=== PATIENT | female | born 1940 | race Caucasian/White ===

== ENCOUNTER 2025-03-04 07:55 | Outpatient (CLI) | payer MEDICARE, SELFPAY | END 2025-03-04 07:56 | disposition home or self-care (01) | LOC: AMB 03-05 10:03 | PROVIDERS: Visit Provider Emergency Medicine | DX: S79.912A Unspecified injury of left hip, initial encounter (principal); W06.XXXA Fall from bed, initial encounter; Y92.003 Bedroom of unspecified non-institutional (private) residence as the place of occurrence of the external cause | CPT/HCPCS: A0425; A0433 ==

== ENCOUNTER 2025-03-04 08:33 | Observation (INO) | payer MEDICARE, SELFPAY ==
[2025-03-04] VITALS (12 sets, daily range): BP systolic 108–153; BP diastolic 65–79; PULSE 71–93; RESP 16–18; TEMP 36.2–37; O2SAT 92–96; BMI 19.5; BMI 15.5
--- NOTE | 2025-03-04 08:47 | CRLHL7_ITS ---
For Patients: As a result of the Cures Act, medical imaging exams and procedure reports are released immediately into your electronic medical record. You may view this report before your referring provider. If you have questions, please contact your health care provider. INDICATION: Left hip pain post fall TECHNIQUE: AP view of the pelvis and lateral projection of the left hip COMPARISON: None FINDINGS: Acute nondisplaced fractures of left pubic ramus and medial inferior ischiopubic ring. No other obvious fracture or subluxation/diastases. Hips negative. IMPRESSION: Acute nondisplaced fractures of left pubic ramus and medial inferior ischiopubic ring Dictated by Carmelo Faustin MD @ 03/04/2025 9:28:50 AM (Electronically Signed)
--- NOTE | 2025-03-04 09:22 | ED.GENADULT ---
HPI - General Adult General Date Seen: 03/04/25 Chief complaint: Hip Injury/Pain Stated complaint: weakness Time Seen by Provider: 03/04/25 08:40 Source: patient and family Mode of arrival: EMS Limitations: no limitations History of Present Illness HPI narrative: Patient is an 84-year-old female presenting to the emergency department for left hip pain. She she has some baseline cognitive impairment and family in the room states in the morning she is very groggy at baseline. She states she does not remember exactly what happened but they believe she was getting out of bed too quickly to go to the bathroom causing her to fall. She landed on her left hip. After that family was able to help her to the bathroom but she continues to have left hip pain and can only put minimal weight on it currently. She also hit her left elbow but states the elbow pain is relatively mild. Family states she appears to be acting at her baseline. Patient denies any other pain. Family does note the patient does have pain to the bilateral inner aspect of her calves. Related Data Home Medications ?Medication ?Instructions ?Recorded ?Confirmed apixaban 2.5 mg tablet (Eliquis) 2.5 mg PO BID 03/04/25 03/04/25 Allergies Allergy/AdvReac Type Severity Reaction Status Date / Time No Known Drug Allergies Allergy Verified 03/04/25 08:40 Review of Systems Narrative: Pertinent systems reviewed and were negative unless stated in HPI PFS PFS Medical History Atrial fibrillation ?I48.91 - Unspecified atrial fibrillation (ICD-10) RSD (reflex sympathetic dystrophy) ?G90.50 - Complex regional pain syndrome I, unspecified (ICD-10) Social History Smoking Status: Never smoker Do you use any of these nicotine containing products: None Second hand tobacco smoke exposure: No How often do you have a drink containing alcohol: never How often do you have six or more drinks on one occasion: Never AUDIT-C Alcohol total score: 0 Non-prescribed substance use: denies use service: No Exam Narrative: Exam Narrative: Const: Well-nourished, Well-developed, in mild distress Eyes: PERRL, no conjunctival injection, and symmetrical lids HENT: Atraumatic external nose and ears. Moist mucous membranes. Neck: Symmetric, trachea midline, No thyromegaly. CVS: RRR, No murmurs or gallops. Peripheral pulses 2+ and equal in all extremities RESP: Unlabored respiratory effort. Clear to auscultation bilaterally. GI: Nontender/Nondistended, No rebound or guarding. MSK: Tenderness to left growing, able to move her leg at the knee but has pain trying to move the leg at the hip. Bilateral inner calf tenderness. No altered calf tenderness. No midline spinal tenderness or step-offs. Skin: Warm, Dry. No rashes or lesions. Neuro: Normal Muscle tone, No focal neurological deficits. Psych: Awake, Alert, & Oriented x3. Appropriate mood and affect. Const: Vital Signs, click to edit/add: Vital Signs - 24 hr 03/04/25 08:40 03/04/25 08:46 Temperature 97.2 F L Pulse Rate [Pulse Oximeter] 73 Respiratory Rate 18 Blood Pressure [Ri ght Upper Arm] 144/79 H Pulse Oximetry 95 96 Oxygen Delivery Me thod Room Air Course Vital Signs Vital signs: Initial Vital Signs Temperature 97.2 F L 03/04/25 08:40 Temperature Source Temporal Artery Scan 03/04/25 08:40 Pulse Rate 73 03/04/25 08:40 Respiratory Rate 18 03/04/25 08:40 Blood Pressure 144/79 H 03/04/25 08:40 Blood Pressure Mean 100 03/04/25 08:40 Blood Pressure Position Sitting 03/04/25 08:40 Pulse Oximetry 95 03/04/25 08:40 Oxygen Delivery Method Room Air 03/04/25 08:40 Vital Signs Temperature 97.2 F L 03/04/25 08:40 Pulse Rate 73 03/04/25 08:40 Respiratory Rate 18 03/04/25 08:40 Blood Pressure 144/79 H 03/04/25 08:40 Pulse Oximetry 95 03/04/25 08:40 Oxygen Delivery Method Room Air 03/04/25 08:40 Temperature 97.2 F L 03/04/25 08:40 Pulse Rate 73 03/04/25 08:40 Respiratory Rate 18 03/04/25 08:40 Blood Pressure 144/79 H 03/04/25 08:40 Pulse Oximetry 96 03/04/25 08:46 Oxygen Delivery Method Room Air 03/04/25 08:40 Medications Administered Medications: Discontinued Medications Generic Name Dose Route Start Last Admin Trade Name Madina PRN Reason Stop Dose Admin Oxycodone HCl 2.5 mg 03/04/25 13:16 03/04/25 13:34 Oxycodone 5 Mg Tablet PO 03/04/25 13:17 2.5 mg ONCE ONE Administration Medical Decision Making MDM Narrative Medical decision making narrative: Patient is an 84-year-old female presenting to the emergency department after a fall. She does have pain to her left groin and skin tear on her left elbow with some bruising. She is on Eliquis. X-ray ordered by nursing staff. I also ordered CT scans of her head cervical spine considered we are unsure the entire extent of the fall. X-ray of left elbow was done. X-ray the left hip shows a nondisplaced fractures of the left pubic ramus and medial inferior issue pubic ring. CT scans reviewed by myself and the radiologist shows no acute concerning abnormalities. Left elbow x-ray reviewed by myself the radiologist shows no concerning findings. Patient and consider trying to discharge home as I spoke to orthopedic and he states medically the patient is safe for discharge home and the patient can ambulate. She is weight-bearing as tolerated. Physical therapy came to evaluate her and states that she can turn and pivot but is unable to take any steps and can not go up any steps. All of the places clear able to go would have step so they would like her to be admitted overnight under observation so they can figure out a plan. She was given oxycodone 2.5 mg prior to PT to help. She states she is very sensitive to narcotics and it does not take much. Hospitalist accepted her for observation Imaging Data Hip x-ray: Attestation: I have reviewed the pertinent imaging results. Radiologist's impression: Acute nondisplaced fractures of left pubic ramus and medial inferior ischiopubic ring Dictated by Carmelo Faustin MD @ 03/04/2025 9:28:[address] scan head: Attestation: I have reviewed the pertinent imaging results. Radiologist's impression: 1. No acute intracranial hemorrhage. 2. Moderate hypoattenuating changes in the white matter which are nonspecific, but commonly attributable to chronic microangiopathic change. 3. Multifocal nonspecific mild skin thickening at the left periorbital region and left anterolateral scalp. Correlate with direct observation on physical exam. Please note that all CT scans at this facility use dose modulation, iterative reconstruction, and/or weight-based dosing when appropriate to reduce radiation dose to as low as reasonably achievable. Dictated by Samuel Aneglo MD @ 03/04/2025 11:12:[address] scan cervical spine: Attestation: I have reviewed the pertinent imaging results. Radiologist's impression: 1. No evident acute displaced fracture. 2. Moderate to severe degenerative change of the cervical spine. Please note that all CT scans at this facility use dose modulation, iterative reconstruction, and/or weight-based dosing when appropriate to reduce radiation dose to as low as reasonably achievable. Dictated by Samuel Angelo MD @ 03/04/2025 11:19:13 AM X-ray left elbow: Attestation: I have reviewed the pertinent imaging results. Radiologist's impression: No acute traumatic injury is identified. Dictated by David Cueto MD @ 03/04/2025 11:23:30 AM Discharge Plan Discharge Clinical Impression: Closed pelvic fracture Qualifiers: Encounter type: initial encounter Pelvic bone location: pubis Sublocation of pubis: unspecified portion of pubis Laterality: left Qualified Code(s): S32.502A - Unspecified fracture of left pubis, initial encounter for closed fracture Patient Disposition: Admitted As Observation Condition: Stable
--- NOTE | 2025-03-04 10:06 | CRLHL7_ITS ---
For Patients: As a result of the Century Cures Act, medical imaging exams and procedure reports are released immediately into your electronic medical record. You may view this report before your referring provider. If you have questions, please contact your health care provider. INDICATION: Fall COMPARISON: None. TECHNIQUE: CT of the cervical spine without contrast. FINDINGS: There is diffuse osseous demineralization. Alignment: Slight levocurvature of the cervical spine. Vertebra: No evident acute displaced fracture or traumatic malalignment. Cervical vertebral body height is grossly preserved. There is a prominent partially calcified pannus associated with the craniocervical junction. There are multilevel degenerative changes characterized by disc height loss, osteophytosis, facet hypertrophy, and end plate degenerative irregularity. No high-grade osseous spinal canal stenosis. There is multilevel osseous neural foraminal narrowing such as moderate to severe narrowing at the left C3-4. Paraspinal muscles: Unremarkable noncontrast CT appearance. Additional findings: There are vascular calcifications. There is biapical nodular pleural-parenchymal scarring. IMPRESSION: 1. No evident acute displaced fracture. 2. Moderate to severe degenerative change of the cervical spine. Please note that all CT scans at this facility use dose modulation, iterative reconstruction, and/or weight-based dosing when appropriate to reduce radiation dose to as low as reasonably achievable. Dictated by Samuel Angelo MD @ 03/04/2025 11:19:13 AM (Electronically Signed)
--- NOTE | 2025-03-04 10:06 | CRLHL7_ITS ---
For Patients: As a result of the Century Cures Act, medical imaging exams and procedure reports are released immediately into your electronic medical record. You may view this report before your referring provider. If you have questions, please contact your health care provider. INDICATION: Fall. COMPARISON: None. TECHNIQUE: CT of the head without contrast. FINDINGS: Brain, ventricles, and extra-axial spaces: No acute intracranial hemorrhage. Pope-white differentiation is grossly preserved. Moderate hypoattenuating changes in the white matter which are nonspecific, but commonly attributable to chronic microangiopathic change. Mild parenchymal volume loss with commensurate size of the ventricles and sulci. There are intracranial vascular calcifications. Bones: No acute osseous findings. Visualized paranasal sinuses are clear. Visualized mastoid air cells are clear. Additional findings: Status post bilateral lens replacement. Multifocal mild skin thickening at the left periorbital region and left anterolateral scalp. Rightward deviation of the nasal septum. IMPRESSION: 1. No acute intracranial hemorrhage. 2. Moderate hypoattenuating changes in the white matter which are nonspecific, but commonly attributable to chronic microangiopathic change. 3. Multifocal nonspecific mild skin thickening at the left periorbital region and left anterolateral scalp. Correlate with direct observation on physical exam. Please note that all CT scans at this facility use dose modulation, iterative reconstruction, and/or weight-based dosing when appropriate to reduce radiation dose to as low as reasonably achievable. Dictated by Samuel Angelo MD @ 03/04/2025 11:12:59 AM (Electronically Signed)
--- NOTE | 2025-03-04 10:35 | CRLHL7_ITS ---
For Patients: As a result of the Cures Act, medical imaging exams and procedure reports are released immediately into your electronic medical record. You may view this report before your referring provider. If you have questions, please contact your health care provider. INDICATION: Posttraumatic pain. COMPARISON: None available. TECHNIQUE: Three views of the left elbow. FINDINGS: Mineralization: Normal. Alignment: Normal. Bones and Joints: No fracture is identified. Soft Tissues: No joint effusion. No significant periarticular soft tissue swelling is appreciated on this radiographic study. Correlate with clinical exam findings. IMPRESSION: No acute traumatic injury is identified. Dictated by David Cueto MD @ 03/04/2025 11:23:30 AM (Electronically Signed)
--- OUTSIDE RECORDS SUMMARY | 2025-03-04 11:40 | XMS_ITS | Clinical Summary ---
Author Organization [facility] Address [address] [place] [address] Care Team Providers Care Director Pediatric Name Role Phone Unavailable Primary Care Provider Unavailabl e Social History Tobacco Use Types Packs/Day Years Used Date Smoking Tobacco: Never Assessed Comments Unknown Sex and Gender Information Value Date Recorded Sex Assigned at Not on file Legal Sex Female 5:35 PM CDT Gender Identity Not on file Sexual Orientation Not on file Plan of Treatment Not on file Insurance MEDICARE PART [facility]
--- OUTSIDE RECORDS SUMMARY | 2025-03-04 11:40 | XMS_ITS | Clinical Summary ---
Author Organization [facility] Address [address] [place] [address] [place] [address] Care Team Providers Care Ecosystem Ecology Professor Name Role Phone Kim Hutchison MD Primary Care Provider Allergies Active Allergy Reactions Criticality Noted Date Comments Acetaminophen-Codeine 12/05/2023 Morphine And Codeine Other Medium 03/03/2020 Other Reaction(s): Confusion, Mental Status Change Patient states she has a bad reaction to Tylenol3 (with codeine) no issues with regular tylenol. Patient states she has a bad reaction to Tylenol3 (with codeine) no issues with regular tylenol. Medications risedronate (Actonel) 150 MG tablet Take 150 mg by mouth every 30 days. 1 Active pregabalin (Lyrica) 75 MG capsule Take 75 mg by mouth in the morning and 75 mg in the evening. 2 Active levothyroxine (Synthroid, Levoxyl) 75 MCG tablet Take 1 tablet by mouth 1 time each day. Active rosuvastatin (Crestor) 10 MG tablet Take 1 tablet by mouth 1 time each day. 2 Active montelukast (Singulair) 10 MG tablet Take 10 mg by mouth 1 time each day. Active Azelastine-Fluti casone 137-50 MCG/ACT suspension 4 Active albuterol (ProAir Digihaler) 90 mcg/act breath-activated inhaler (w/ sensor) Inhale 1 puff if needed. 0 Active cholecalciferol (Vitamin D-3) 125 MCG (5000 UT) capsule Take 5,000 Units by mouth 1 time each day. 0 Active Apoaequorin (Prevagen Extra Strength) 20 MG capsule Take 20 mg by mouth 1 time each day. Active ferrous sulfate 325 (65 Fe) MG tablet 325 mg in the morning. Take with meals. 0 Active cyanocobalamin (Vitamin B-12) 500 MCG tablet Take 1,000 mcg by mouth 1 time each day. Active Multiple Vitamins-Mineral s (PreserVision AREDS 2) capsule 1 cap, PO, BID, 0 Refill(s) 1 Active loratadine (Claritin) 10 MG tablet Take 10 mg by mouth 1 time each day. 4 Active ciprofloxacin (Cipro) 500 MG tabletIndication s:OAB (overactive bladder),Urinary tract infection with hematuria, site unspecified Take 1 tablet every 12 hours. Start the day prior to your procedure 6 tablet 5 Active memantine (Namenda) 10 MG tablet Take 1 tablet by mouth in the morning and 1 tablet in the evening. Active mirabegron ER (Myrbetriq) 25 MG 24 hr tablet TAKE 1 TABLET DAILY 90 tablet 3 5 Active apixaban (Eliquis) 2.5 MG tablet TAKE 1 TABLET TWICE A DAY 180 tablet 3 5 Active metoprolol tartrate (Lopressor) 25 MG tablet TAKE 1 TABLET TWICE A DAY 180 tablet 3 5 Active Active Problems Problem Noted Date Diagnosed Date Mitral valve stenosis 09/01/2024 Hypercholesterolemia 08/31/2024 Hypertrophic cardiomyopathy (CMS/HCC) 08/31/2024 Nonrheumatic aortic valve stenosis 08/31/2024 Paroxysmal atrial fibrillation (CMS/HCC) 025 Urge incontinence 03/31/2024 OAB (overactive bladder) 03/31/2024 Encounters Date Type Department Care Team Description 01/03/2025 Refill [facility] [address] [place] [phone] Terra Graff MD 12/23/2024 Refill [facility] [address] [facility] [address] [place] [phone] Terra Graff MD from Last 3 Months Family History Medical History Relation Name Comments Cancer Father Vj Relation Name Status Comments Father Vj Alive Social History Tobacco Use Types Packs/Day Years Used Date Smoking Tobacco: Never Smokeless Tobacco: Never Tobacco Cessation:Counseling Given: No Alcohol Use Standard Drinks/Week Comments Never 0 (1 standard drink = 0.6 oz pur e alcohol) Comments No Sex and Gender Information Value Date Recorded Sex Assigned at Female 09/07/2023 5:34 PM CDT Legal Sex Female 5:34 PM CDT Gender Identity Female 09/07/2023 5:34 PM CDT Sexual Orientation Not on file Last Filed Vital Signs Vital Sign Reading Time Taken Comments Blood Pressure 153/72 09/24/2024 10:21 AM CDT Pulse 71 09/24/2024 10:21 AM CDT Temperature - - Respiratory Rate - - Oxygen Saturation - - Inhaled Oxygen Concentration - - Weight 43.5 kg (95 lb 14.4 oz) 09/24/2024 10:21 AM CDT Height 124.5 cm (4' 1) 09/24/2024 10:21 AM CDT Body Mass Index 28.08 09/24/2024 10:21 AM CDT Plan of Treatment Upcoming Encounters Date Type Department Care Team (Late st Contact Info) Description 03/16/2025 10:30 AM CDT Ancillary Procedure [address] [place] [phone] 03/16/2025 10:45 AM CDT Office Visit [address] [place] [phone] Terra Graff MD [address] [place] [address] [address] [place] [phone] 03/22/2025 2:30 PM CDT Office Visit [facility] [address] [facility] [address] [place] [phone] Franklin Ramos MD [address] [facility] [address] [place] [phone] Health Maintenance Due Date Last Done Comments Lipid Panel 1940 Medicare Annual Wellness (AWV) 1940 DTaP/Tdap/Td Vaccines (1 - Tdap) 1959 Respiratory Syncytial Virus (RSV) Adult Series (1 - 1-dose 75+ series) 2015 Zoster Vaccines (2 of 2) 10/13/2018 08/18/2018 Influenza Vaccine (#1) 2025 03/17/2023 Pneumococcal Vaccine: 50+ Years Completed Bone Density Scan Completed 01/11/2022 HIB Vaccines Aged Out No longer eligi ble based on patient's age to complete this topic HPV Vaccines Aged Out No longer eligi ble based on patient's age to complete this topic Hepatitis A Vaccines Aged Out No long er eligible based on patient's age to complete this topic Hepatitis B Vaccines Aged Out No long er eligible based on patient's age to complete this topic IPV Vaccines Aged Out No longer eligi ble based on patient's age to complete this topic Meningococcal Vaccine Aged Out No vern ridge eligible based on patient's age to complete this topic Rotavirus Vaccines Aged Out No longer eligible based on patient's age to complete this topic Procedures Procedure Name Priority Date/Time Associated Diagnosis Comments DEXA BONE DENSITY Routine 01/11/2022 11: 32 AM CDT from Last 3 Months or Most Recently Relevant to Health Maintenance Results * DEXA bone density (01/11/2022 11:32 AM CDT) Anatomical Region Laterality Modality Body Digital Radiogra phy Impressions 01/11/2022 2:14 PM CDT OSTEOPENIA Patient is at medium risk for fracture. This exam was interpreted at [id number] for [facility]. Dr. Lauren Fuentes M.D. [facility]/[place]:01/11/2022 14:14:28 Pole Peeling Machine Operator Helper(s): Sydnee PARSONS(R)(M), [facility] Narrative 01/11/2022 2:14 PM CDT BONE DENSITY ASSESSMENT: 01/11/2022 CLINICAL DATA: Post menopausal. /Z78.0 FINDINGS: Bone density evaluation was performed 01/11/2022 on the left distal radius using a Hologic unit. The BMD average for the exam is 0.580 g/cm2. The T-score is -1.90 and the Z-score is 1.40. This matches the World Health Organization's criteria for osteopenia and places the patient at a medium risk for fracture. An additional bone density evaluation was performed 01/11/2022 on the left femur neck using a Hologic unit. The BMD average for the exam is 0.609 g/cm2. The T-score is -2.20 and the Z-score is 0.20. This matches the World Health Organization's criteria for osteopenia and places the patient at a medium risk for fracture. An additional bone density evaluation was performed 01/11/2022 on the left total femur area using a Hologic unit. The BMD average for the exam is 0.689 g/cm2. The T-score is -2.10 and the Z-score is 0.10. This matches the World Health Organization's criteria for osteopenia and places the patient at a medium risk for fracture. An additional bone density evaluation was performed 01/11/2022 on the AP L1-L3 region of spine using a Hologic unit. The BMD average for the exam is 1.105 g/cm2. The T-score is 0.80 and the Z-score is 3.50. This matches the World Health Organization's criteria for normal bone density and places the patient within normal limits of fracture risk. FRAX 10 year probability of major osteoporotic fracture is 14% and hip fracture is 4.6%. Procedure Note Lauren Fuentes MD - 10/19/2023 BONE DENSITY ASSESSMENT: 01/11/2022 CLINICAL DATA: Post menopausal. /Z78.0 FINDINGS: Bone density evaluation was performed 01/11/2022 on the left distal radiususing a Hologic unit. The BMD average for the exam is 0.580 g/cm2. TheT-score is -1.90 and the Z-score is 1.40. This matches the World HealthOrganization's criteria for osteopenia and places the patient at a mediumrisk for fracture. An additional bone density evaluation was performed 01/11/2022 on the leftfemur neck using a Hologic unit. The BMD average for the exam is 0.609g/cm2. The T-score is -2.20 and the Z-score is 0.20. This matches theWorld Health Organization's criteria for osteopenia and places the patientat a medium risk for fracture. An additional bone density evaluation was performed 01/11/2022 on the lefttotal femur area using a Hologic unit. The BMD average for the exam is0.689 g/cm2. The T- score is -2.10 and the Z-score is 0.10. This matchesthe World Health Organization's criteria for osteopenia and places thepatient at a medium risk for fracture. An additional bone density evaluation was performed 01/11/2022 on the APL1-L3 region of spine using a Hologic unit. The BMD average for the examis 1.105 g/cm2. The T-score is 0.80 and the Z-score is 3.50. Thismatches the World Health Organization's criteria for normal bone densityand places the patient within normal limits of fracture risk. FRAX 10 year probability of major osteoporotic fracture is 14% and hipfracture is 4.6%. IMPRESSION: OSTEOPENIA Patient is at medium risk for fracture. This exam was interpreted [id number] for [facility]. Dr. Lauren Fuentes M.D. [facility]/[place]:01/11/2022 14:14:28 Pole Peeling Machine Operator Helper(s): Sydnee PARSONS(R)(M), [facility] Kim Hutchison MD IMG DXA PROCEDURES Fin al Result from Last 3 Months or Most Recently Relevant to Health Maintenance Insurance [employer] MEDICARE ADVANTAGE AETNA MEDICARE ADVANTAGE AETNA MEDICARE ADVANTAGE Care Teams Ecosystem Ecology Professor Relationship Specialty [place] [address] [facility] [address] [place] [phone] PCP - General 02/18/20
--- OUTSIDE RECORDS SUMMARY | 2025-03-04 11:40 | XMS_ITS | Clinical Summary ---
Author Organization [facility] ScoreStreak Counts Include 234 Beds At [facility] Address [address] [address] Phone Care Team Providers Care Timber Poisoner Name Role Phone Elsewhere, Pcp Primary Care Provider Unavailabl e Allergies Active Allergy Reactions Criticality Noted Date Comments Codeine Other Low 02/25/2022 Patient states she has a bad reaction to Tylenol3 (with codeine) no issues with regular tylenol. Morphine And Codeine Confusion Medium 03/03/2020 Medications pregabalin (LYRICA) 75 MG capsule Take 1 Cap by mouth two times a day. 2 Active rosuvastatin (Crestor) 10 MG tablet Take 1 Tab by mouth one time a day. 2 Active Cholecalciferol (VITAMIN D) 1000 UNIT Capsule Take 5,000 Units by mouth one time a day. 2 Active MONTELUKAST SODIUM OR Take by mouth. Activ e levothyroxine (SYNTHROID) 75 MCG tablet Take 75 mcg by mouth one time a day. Active calcitonin, salmon, (Miacalcin) 200 UNIT/ACT nasal spray Instill 1 Concord nasally one time a day. Concord to ONE nostril daily, alternate nostrils. Active albuterol HFA (PROAIR HFA, VENTOLIN HFA) 108 (90 Base) MCG/ACT inhalation aerosol Inhale 2 Puffs into the lungs 2 (two) times a day. Shake before using. Active mometasone - formoterol (DULERA) 100-5 MCG/ACT inhalation aerosol Inhale 2 Puffs into the lungs two times a day. Active omeprazole (PRILOSEC OTC) 20 MG delayed-release tablet Take 20 mg by mouth every morning before breakfast. Tablet should be swallowed whole; do not crush or chew. Take before meals. Active Acetaminophen 325 MG capsule Take by mouth as needed. Active estradiol (ESTRACE) 0.1 MG/GM vaginal cream 9 Active Apoaequorin (PREVAGEN OR) Take by mouth. A ctive Cyanocobalamin (B-12) [address] 1,000 mcg under the tongue one time a day. 0 Active ferrous sulfate 325 (65 Fe) MG tablet Take 1 Tab by mouth every morning with breakfast. 0 Active metoprolol tartrate (Lopressor) 25 MG tablet Take 25 mg by mouth two times a day. Active apixaban (Eliquis) 5 MG tablet Take 1 Tablet by mouth two times a day. 180 Tablet 2 2 Active mirabegron ER (Myrbetriq) 25 MG Tablet Extended Release 24 Hour tablet Take 1 Tablet by mouth one time a day. Active loratadine (Claritin) 10 MG tabletIndicatio ns:Seasonal allergies Take 1 Tablet by mouth one time a day. Take on an empty stomach. 4 Active azelastine-flut icasone (Dymista) 137-50 MCG/ACT nasal sprayIndication s:Seasonal allergies Place 1 Concord into both nostrils two times a day. 23 g 4 Active traMADol (Ultram) 50 MG tablet Take 1 Tablet by mouth every six hours as needed for Pain. 12 Tablet 12/25/2023 1:11 PM CDT 4 Active methylPREDNISol one (Medrol Dimas) 4 MG tablet therapy pack Follow package directions. 21 Tablet 01/09/2024 5:01 PM CDT 4 Active methocarbamol (Robaxin) 500 MG tablet Take 1 Tablet by mouth three times a day as needed for Pain or Muscle Spasms. 30 Tablet 2 01/30/2024 3:32 PM CDT 4 Active Active Problems Problem Noted Date Diagnosed Date Postural imbalance 01/24/2024 Muscle strain of upper back 12/17/2023 RSD (reflex sympathetic dystrophy) DVT (deep venous thrombosis) Overview (02/12/2012): no PE, post foot surgery GERD (gastroesophageal reflux disease) Hyperlipidemia Hypothyroidism Overactive bladder Immunizations Immunization Administration Dates Next Due COVID-19 MRNA Vaccine (Pfize r ALEC-SUCR) Anthony 12+ Yrs (2022 [facility]) 03/18/2023 COVID-19 Vaccine: Pfizer Biv alent (TRI-SUCR Anthony) 12+ Yrs ([facility]) 03/22/2022 COVID-19 Vaccine: Pfizer Dos e 3 (Purple- 12+ Yrs) [facility] 03/13/2021 COVID-19 mRNA Vaccine (Pfizer-Purple 12+ Yrs) ,07/13/2020 Influenza Unspecified Formulation 03/17/2023 Respiratory Syncytial Virus (RSV) Vaccine Unspec ified 03/17/2023 Surgical History Surgery Date Site/Laterality Comments HAMMER TOE SURGERY FOOT SURGERY LUMBAR SPINE SURGERY CATARACT REMOVAL Bilateral Medical History Medical History Date Comments RSD (reflex sympathetic dystrophy) D[facility]deep venous thrombosis) [facility] no PE, post foot surgery GERD (gastroesophageal reflux disease) Hyperlipidemia Hypothyroidism Overactive bladder [place] Social History Tobacco Use Types Packs/Day Years Used Date Smoking Tobacco: Never Passive Smoke Exposure: Never Smokeless Tobacco: Never Alcohol Use Standard Drinks/Week Comments Not Currently 0 (1 standard drink = 0.6 oz pur e alcohol) rare Overall Financial Resource Strain (CARDIA) Answe r Date Recorded How hard is it for you to pa y for the very basics like food, housing, medical care, and heating? Not hard at all 03/04/2023 PHQ-2 Answer Date Recorded PHQ-2 Total 0 12/16/2023 Hunger Vital Sign Answer Date Recorded Within the past 12 months, y ou worried that your food would run out before you got the money to buy more. Never true 03/04/20 23 Within the past 12 months, t he food you bought just didn't last and you didn't have money to get more. Never true 03/04/2023 PRAPARE - Transportation Answer Date Re corded In the past 12 months, has l ack of transportation kept you from medical appointments or from getting medications? No 02/15 In the past 12 months, has l ack of transportation kept you from meetings, work, or from getting things needed for daily living? No 03/04/2023 EH IP Custom Utilities ([employer]) Answer Date Recorded How hard is it for you to pa y for the very basics like food, housing, medical care, and heating? 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 Gender Identity Female 01/12/2019 4:15 PM CDT Sexual Orientation Not on file Obstetrics History Last Filed Vital Signs Vital Sign Reading Time Taken Comments Blood Pressure 116/70 01/09/2024 1:09 PM CDT Pulse 69 01/09/2024 1:09 PM CDT Temperature 35.8 C (96.4 F) 01/09/2024 1:09 PM CDT Respiratory Rate 16 03/05/2022 10:22 AM CDT Oxygen Saturation 92% 01/09/2024 1:09 PM CDT Inhaled Oxygen Concentration - - Weight 48.8 kg (107 lb 9.6 oz) 01/09/2024 1:09 P M CDT Height 147.3 cm (4' 10) 01/09/2024 1:09 PM CDT Body Mass Index 22.49 01/09/2024 1:09 PM CDT Plan of Treatment Health Maintenance Due Date Last Done Comments MEDICARE AWV 1940 PERTUSSIS (Standing Order) 1959 TETANUS (Standing Order) 1959 Pneumococcal Vaccine: 50+ yrs (Standing Order) (1 of 1 - PCV) 1990 Shingrix (Zoster recombinant) vaccine (Standing Order) (1 of 2) 1990 DXA,FEMALES AGE 65 OR GREATER 2005 COVID-19 Vaccine ( season) 2025 03/18/2023, 03/22/2022, 03/13/2021, Additional history exists Influenza Vaccine Seasonal (Standing Order) (#1) 2025 03/17/2023 RSV Vaccination (60+ yrs) (Abrysvo/Arexvy) Completed 03/17/2023 HPV Vaccine (Standing Order) Aged Out No longer eligible based on patient's age to complete this topic Hepatitis B Vaccine (Standing Order) Aged Out No longer eligible based on patient's age to complete this topic Insurance AETNA MEDICARE ADVANTAGE MEDICARE PART A & B AETNA Care Teams Timber Poisoner Relationship Specialty Start Date End Date Elsewhere, Pcp PCP - General 02/11/12
--- OUTSIDE RECORDS SUMMARY | 2025-03-04 11:40 | XMS_ITS | Clinical Summary ---
Author Organization [facility] Address [address] [place] [address] Care Team Providers Care Director Of Finance Name Role Phone Kim Hutchison MD Primary Care Provider [phone] Allergies No known active allergies Medications pregabalin (LYRICA) 75 MG capsule Take 1 capsule by mouth daily. 2 Active levothyroxine (SYNTHROID) 75 mcg tablet Take 1 tablet by mouth daily. Active calcitonin, salmon, (MIACALCIN) 200 unit/actuation nasal spray 1 spray into each nostril daily. Active rosuvastatin (CRESTOR) 10 MG tablet Take 1 tablet by mouth daily. 2 Active azelastine (ASTELIN) 137 mcg (0.1 %) nasal spray azelastine 137 mcg (0.1 %) nasal spray aerosol Active montelukast (SINGULAIR) 10 mg tablet Take 1 tablet by mouth nightly. Active DICLOFEN FLM-LCUNCN-A-SA L-MENT MISC Active albuterol (PROAIR HFA) 90 mcg/actuation inhaler ProAir HFA 90 mcg/actuation aerosol inhaler INHALE 2 PUFFS PO QID PRN Active mometasone-form oterol (DULERA) 200-5 mcg/actuation inhaler 2 sprays 2 (two) times a day. 6 Active estradiol (ESTRACE) 0.01 % (0.1 mg/gram) vaginal cream estradiol 0.01% (0.1 mg/gram) vaginal cream 8 Active omeprazole 20 mg tablet,delayed release (DR/EC) Take 20 mg by mouth daily. Active naphazoline-phe niramine (NAPHCON-A) 0.025-0.3 % ophthalmic solution Apply to eye. Active acetaminophen (TYLENOL) 325 MG tablet Take 325 mg by mouth every 6 (six) hours as needed for fever. Active methyl salicylate-ment hol (ICY HOT) 30-10 % cream Apply topically. Active polyethylene glycol 3350 (MIRALAX ORAL) Take by mouth. 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 Immunizations Immunization Administration Dates Next Due PFIZER COVID-19 MRNA VACCINATION 08/03/2020,06/18 Family History Medical History Relation Name Comments Cancer Brother Vj Haro Jr Bladder, Immunotherapy (?) Heart attack Brother Vj Haro Jr 2 mild at tacks Stroke Brother Vj Haro Jr TIAs Cancer Father Vj Haro Intestinal & Colon, surgery Cancer Maternal Aunt Lisandro Tristan Breast Cancer Maternal Uncle Anthony Schmid Lung Cancer Paternal Grandmother Rachel Lei Haro Inte stinal, surgery Relation Name Status Comments Brother Vj Haro Jr Father Vj Haro Maternal Aunt Lisandro Tristan Maternal Uncle Anthony Schmid Paternal Grandmother Rachel Haro Social History Tobacco Use Types Packs/Day Years Used Date Smoking Tobacco: Never Smokeless Tobacco: Never Alcohol Use Standard Drinks/Week Comments Yes 0.1 (1 standard drink = 0.6 oz p ure alcohol) Comments Unknown Sex and Gender Information Value Date Recorded Sex Assigned at Female 04/01/2019 8:49 AM CDT Legal Sex Female 12:59 PM DRUG ABUSE SOCIAL WORKER Gender Identity Female 04/01/2019 8:49 AM CDT Sexual Orientation Straight 04/01/2019 8: 49 AM CDT Last Filed Vital Signs Vital Sign Reading Time Taken Comments Blood Pressure 158/70 07/28/2019 9:48 AM DRUG ABUSE SOCIAL WORKER Pulse 80 07/28/2019 9:48 AM DRUG ABUSE SOCIAL WORKER Temperature - - Respiratory Rate - - Oxygen Saturation - - Inhaled Oxygen Concentration - - Weight 47.6 kg (105 lb) 07/28/2019 9:48 AM DRUG ABUSE SOCIAL WORKER Height 156.2 cm (5' 1.5) 07/28/2019 9:48 AM DRUG ABUSE SOCIAL WORKER Body Mass Index 19.52 07/28/2019 9:48 AM DRUG ABUSE SOCIAL WORKER Plan of Treatment Health Maintenance Due Date Last Done Comments 50+ PNEUMOCOCCAL VACCINE (1 of 1 - PCV) 1990 SHINGLES VACCINES (1 of 2) 1990 COVID-19 VACCINE (3 - 2024-2 6 season) 2025 08/03/2020, 07/13/2020 INFLUENZA VACCINE (#1) 2025 03/06/2019 MENINGOCOCCAL B SERIES VACCINE Aged Out No longer eligible based on patient's age to complete this topic Insurance AETNA MEDICARE HMO/O MCR Care Teams Director Of Finance Relationship Specialty [place] [address] [address] [facility] [address] [place] [address] PCP - General Family Medicine 02/04/19
--- OUTSIDE RECORDS SUMMARY | 2025-03-04 11:40 | XMS_ITS | Encounter Summary ---
Author Organization [facility] Address [address] [place] [address] Care Team Providers Care Kitchen Bath Designer Name Role Phone Kim Hutchison MD Primary Care Provider [phone] Reason for Referral * MRI/CAT/PET Scan (Routine) - Closed Specialty Diagnoses / Procedures Referred By Contac t Referred To Contact Radiology Diagnoses Cervicalgia Procedures MRI Cervical Spine Wo Contrast Pedro Joyner MD Phone: tel: fax: [address] [address] Phone: tel: Referral ID Status Reason Start Date Expiration Date Visits Re quested Visits Authorized [id number] Closed 02/04/2019 02/05/2020 1 1 Encounter Details Date Type Department Care Team (Late st Contact Info) Description 02/04/2019 Transcribe Orders [facility] Central Scheduling [phone] [address] [address] Cervicalgia (Primary Dx) Social History Tobacco Use Types Packs/Day Years Used Date Smoking Tobacco: Never Assessed Comments Unknown Sex and Gender Information Value Date Recorded Sex Assigned at Female 04/01/2019 8:49 AM CDT Legal Sex Female 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 FINDINGS: Cervical spine alignment is within normal limits. Partial ankylosis at the C4-5 disc space and right facet joint. No suspicious focal bone marrow lesions. Visualized spinal cord is normal in appearance. C2-3: No canal or foraminal narrowing. C3-4: Posterior disc bulge causes mild narrowing of the canal. Facet and uncal arthrosis causes severe bilateral foraminal narrowing. C4-5: Posterior central disc protrusion without significant canal narrowing. Facet and uncal arthrosis causes moderate right and mild left foraminal narrowing. C5-C6: No central canal narrowing. Facet and uncal arthrosis causes mild to moderate right foraminal narrowing. C6-C7: Posterior disc bulge. No canal narrowing. Facet and uncal arthrosis causes mild to moderate bilateral foraminal narrowing. C7-T1: No central canal narrowing. Foramina are clear. IMPRESSION: Mild C3-4 canal narrowing. Multilevel spondylotic foraminal narrowing. Partial fusion of the C4 and C5 vertebrae. [facility]-[id number] Procedure Note Milton Pepper MD - 02/04/2019 EXAMINATION: MRI CERVICAL SPINE WO CONTRAST CLINICAL HISTORY: M54.2 Cervicalgia, m54.2 COMPARISON: None. FINDINGS: Cervical spine alignment is within normal limits. Partial ankylosis at the C4-5 disc space and right facet joint. No suspicious focal bone marrow lesions. Visualized spinal cord is normal in appearance. C2-3: No canal or foraminal narrowing. C3-4: Posterior disc bulge causes mild narrowing of the canal. Facet anduncal arthrosis causes severe bilateral foraminal narrowing. C4-5: Posterior central disc protrusion without significant canalnarrowing. Facet and uncal arthrosis causes moderate right and mild leftforaminal narrowing. C5-C6: No central canal narrowing. Facet and uncal arthrosis causes mildto moderate right foraminal narrowing. C6-C7: Posterior disc bulge. No canal narrowing. Facet and uncal arthrosiscauses mild to moderate bilateral foraminal narrowing. C7-T1: No central canal narrowing. Foramina are clear. IMPRESSION: Mild C3-4 canal narrowing. Multilevel spondylotic foraminal narrowing. Partial fusion of the C4 and C5 vertebrae. [facility]-[id number] us Pedro Joyner MD IMG MRI ORDERABLES Final Resu lt documented in this encounter Visit Diagnoses Diagnosis Cervicalgia- Primary Cervicalgia documented in this encounter Care Teams Kitchen Bath Designer Relationship Specialty [place] [address] [facility] [address] [place] [address] PCP - General Family Medicine 02/04/19 documented as of this encounter
--- OUTSIDE RECORDS SUMMARY | 2025-03-04 11:40 | XMS_ITS ---
Author Organization [facility] Address [address] [place] [address] [place] [address] Care Team Providers Care Tour Narrator Name Role Phone Kim Hutchison MD Primary Care Provider Specialty Light Status:Disenrolled (Closed) Start date:12/10/2023 Enrollment date:07/20/2024 End date:02/01/2025 Close reason:Transfer to external pharmacy Primary medications:OnabotulinumtoxinA () Continued Care and Services Coordination
--- OUTSIDE RECORDS SUMMARY | 2025-03-04 11:40 | XMS_ITS | Encounter Summary ---
Author Organization [facility] Address [address] [place] [address] Care Team Providers Care Mill Supervisor Name Role Phone Kim Hutchison MD Primary Care Provider Reason for Visit * Reason Comments Med Refill Encounter Details Date Type Department Care Team (Late st Contact Info) Description 10/08/2024 Refill [facility] [address] [facility] [address] [place] [phone] Franklin Ramos MD [address] [facility] [address] [place] [address] OAB (overactive bladder); Urge incontinence Social History Tobacco Use Types Packs/Day Years Used Date Smoking Tobacco: Never Smokeless Tobacco: Never Alcohol Use Standard Drinks/Week Comments Never 0 (1 standard drink = 0.6 oz pur e alcohol) Comments No Sex and Gender Information Value Date Recorded Sex Assigned at Female 09/07/2023 5:34 PM CDT Legal Sex Female 5:34 PM CDT Gender Identity Female 09/07/2023 5:34 PM CDT Sexual Orientation Not on file documented as of this encounter Miscellaneous Notes * Telephone Encounter - Kamala Keen MA - 02/18/2025 11:10 AM CDT Botox 200 vial delivered today to lee Jensen already scheduled * Telephone Encounter - Kamala Keen MA - 02/02/2025 9:24 AM CDT [facility] * Telephone Encounter - Kamala Keen MA - 01/19/2025 3:41 PM CDT Scheduled 03/22 for Botox, reached out to [facility] for refill processing * Telephone Encounter - Kamala Keen MA - 11/18/2024 9:38 AM CDT Will call them closer to February documented in this encounter Plan of Treatment Upcoming Encounters Date Type Department Care Team (Late st Contact Info) Description 03/16/2025 10:30 AM CDT Ancillary Procedure [address] [place], [place] [phone] 03/16/2025 10:45 AM CDT Office Visit [address] [place] [phone] Terra Graff MD [address] [facility] [address] [place] [address] 03/22/2025 2:30 PM CDT Office Visit [facility] [address] [facility] [address] [place] [phone] Franklin Ramos MD [address] [facility] [address] [place] [address] documented as of this encounter Visit Diagnoses Diagnosis OAB (overactive bladder) Urge incontinence documented in this encounter Care Teams Mill Supervisor Relationship Specialty [place] [address] [address] [facility] [address] [place] [phone] PCP - General 02/18/20 documented as of this encounter
--- NOTE | 2025-03-04 17:21 | PM.IMHP1 ---
Assessment and Plan Assessment and plan (1) Closed pelvic fracture: Problem comment: Plan conservative management with pain control and therapy. Status: Acute (2) Osteoporosis: Problem comment: Fragility fracture involving her pelvis with history of rib fractures from coughing and vertebral compression fractures. Has been on risedronate, vitamin-D and calcium for a decade. Status: Acute (3) Dementia: Problem comment: Namenda Status: Acute (4) Discharge planning issues: Problem comment: Planning to return to [place] but difficulty with pain and immobility due to fracture. Status: Acute (5) Chronic anticoagulation: Problem comment: Monitor for excessive bleeding from pelvic fracture Status: Acute Plan Patient is admitted to the hospital for conservative management of a pelvic fracture with pain management, management of immobility and chronic medical problems as noted above. Total Time Spent Total Time Spent: Total time spent today is 65 minutes in coordination of care, reviewing outside records, discussion with patient and about ongoing management of pelvic fracture and disposition Hospitalist- H&P: HPI History of Present Illness Date Seen: 03/04/25 Chief complaint: weakness Narrative: Eden Ramos is a 84 year old female with history of valvular heart disease, atrial fibrillation, dementia, osteoporosis presents to the emergency department with left groin pain after a fall. Patient is visiting [place] with her . They are staying with friends. She got up this morning to go to the bathroom and fell. There was no loss of consciousness. She did not hit her head. She denies any other injury other than her left groin/hip pain. In the emergency department she was found to have a acute nondisplaced fracture of the left pubic ramus and medial inferior ischial pubic ring. She was unable to ambulate in the emergency department and has been admitted for management of pain and disposition planning. She lives with her in [facility]. They were planning on returning home to [place] today. They spend luz at a cabin on [address]. She reports she has otherwise been feeling well. She denies any fever, cold, cough, chest pain, dyspnea, abdominal pain, vomiting. She does have tendency towards constipation. No urinary problems. Review of Systems Narrative: Review of systems is unremarkable except as noted above Medical Decision Making Medical Decision Making Has patient completed a Health Care Directive: Yes (PCP) [facility] Medical History (Updated 03/04/25 @ 17:50 by Carmelo Cao MD) Chronic anticoagulation ?Z79.01 - senior care (current) use of anticoagulants (ICD-10) Asthma ?J45.909 - Unspecified asthma, uncomplicated (ICD-10) Hx of fracture of ankle ?Z87.81 - Personal history of (healed) traumatic fracture (ICD-10) Osteoporosis ?M81.0 - Age-related osteoporosis without current pathological fracture (ICD-10) Dementia ?F03.90 - Unspecified dementia, unspecified severity, without behavioral disturbance, psychotic disturbance, mood disturbance, and anxiety (ICD-10) Mitral stenosis ?I05.0 - Rheumatic mitral stenosis (ICD-10) Aortic stenosis ?I35.0 - Nonrheumatic aortic (valve) stenosis (ICD-10) Atrial fibrillation ?I48.91 - Unspecified atrial fibrillation (ICD-10) RSD (reflex sympathetic dystrophy) ?G90.50 - Complex regional pain syndrome I, unspecified (ICD-10) Surgical History History of appendectomy ?Z90.49 - Acquired absence of other specified parts of digestive tract (ICD-10) Social History (Updated 03/04/25 @ 17:42 by Carmelo Cao MD) Narrative: Patient lives with her in [facility]. is healthcare power of environmental attorney. Code status is DNR. They spend their luz at [facility]. Currently planning to return to [place]. She does not smoke or drink alcohol. What is your current living situation?: I presently have a place to live Problems where you live: no known problems In the past 12 months, utilities in danger of being shut off: no In past 12 months, lack of transportation kept you from medical appts, meetings, work, or getting things needed for daily living: no In the past 12 mos, have been you worried that your food would run out before you had money to buy more?: never true In the past 12 mos, the food you bought just didn't last and you didn't have money to buy more?: never true Smoking Status: Never smoker Do you use any of these nicotine containing products: None Second hand tobacco smoke exposure: No How often do you have a drink containing alcohol: never How often do you have six or more drinks on one occasion: Never AUDIT-C Alcohol total score: 0 Non-prescribed substance use: denies use Caffeine: No How often does anyone, including family, friends and others, physically hurt you: never How often does anyone, including family, friends and others, insult or talk down to you: never How often does anyone, including family, friends and others, threaten you with harm: never How often does anyone, including family, friends and others, scream or curse at you: never service: No Meds Home Medications and Allergies Home Medications ?Medication ?Instructions ?Recorded ?Confirmed ?Type PREVAGEN 1 cap PO HS 03/04/25 03/04/25 History acetaminophen 500 mg tablet 500 - 1,000 mg PO Q6H PRN 03/04/25 03/04/25 History albuterol sulfate 90 mcg/actuation 2 inh inhalation Q4H PRN 03/04/25 03/04/25 History aerosol inhaler (Ventolin HFA) apixaban 2.5 mg tablet (Eliquis) 2.5 mg PO BID 03/04/25 03/04/25 History azelastine 137 mcg-fluticasone 50 2 spray intranasal BID 03/04/25 03/04/25 History mcg/spray nasal spray celecoxib 100 mg capsule 100 mg PO DAILY PRN 03/04/25 03/04/25 History cholecalciferol (vitamin D3) 125 5,000 unit PO MOWEFR 03/04/25 03/04/25 History mcg (5,000 unit) capsule cyanocobalamin (vitamin B-12) 1,000 mcg PO DAILY@03/04/25 03/04/25 History 1,000 mcg tablet ferrous sulfate 325 mg (65 mg 325 mg PO DAILY@03/04/25 03/04/25 History iron) tablet (Iron (ferrous sulfate)) levothyroxine 75 mcg tablet 75 mcg PO DAILY 03/04/25 03/04/25 History (Synthroid) loratadine 10 mg tablet (Claritin) 10 mg PO DAILY 03/04/25 03/04/25 History memantine 10 mg tablet 10 mg PO BID 03/04/25 03/04/25 History metoprolol tartrate 25 mg tablet 25 mg PO BID 03/04/25 03/04/25 History mirabegron 25 mg tablet,extended 25 mg PO HS 03/04/25 03/04/25 History release 24 hr mometasone-formoterol HFA 200 2 inh inhalation BID 03/04/25 03/04/25 History mcg-5 mcg/actuation aerosol inhaler (Dulera) montelukast 10 mg tablet 10 mg PO HS 03/04/25 03/04/25 History omeprazole 20 mg capsule,delayed 20 mg PO DAILY 03/04/25 03/04/25 History release polyethylene glycol 3350 17 17 g PO DAILY PRN 03/04/25 03/04/25 History gram/dose oral powder (ClearLax) pregabalin 75 mg capsule 75 mg PO DAILY 03/04/25 03/04/25 History psyllium husk 3.4 gram/5.4 gram 1 tsp PO QPM 03/04/25 03/04/25 History oral powder (Metamucil) risedronate 150 mg tablet 150 mg PO Q30D 03/04/25 03/04/25 History rosuvastatin 10 mg tablet 10 mg PO HS 03/04/25 03/04/25 History vit C 250 mg-vit E 90 mg-zinc 40 1 tab PO BID@12,21 03/04/25 03/04/25 History mg-copper 1 [id number] capsule (PreserVision AREDS-2) Allergies Allergy/AdvReac Type Severity Reaction Status Date / Time No Known Drug Allergies Allergy Verified 03/04/25 16:55 Exam Narrative: Exam Narrative: She is alert and pleasant and appears in no distress. She gives her own history but is quite forgetful of recent events, past medical history and medications. Head is without trauma. Eyes normal. Oropharynx normal. No facial asymmetry. Extraocular movements are intact. Visual is[place] are intact. Neck is supple without mass or adenopathy. Respirations are clear to auscultation without wheezing rales or rhonchi. Cardiovascular: S1, S2, 2/6 harsh systolic ejection murmur heard at the right upper sternal border and also a lower pitched systolic ejection murmur at the left lower sternal border. Regular rate and rhythm. Abdomen is soft without tenderness or mass. She has no obvious deformity of her hip or pelvis. Palpation shows tenderness near her low pubic symphysis on the left. She is unable to flex her hip to raise her leg off the bed secondary to pain on the left. Some mild discomfort in the left groin with flexion of the right hip. Distally she has intact strength motion and pulses. No edema. Const: Vital Signs, click to edit/add: Vital Signs - 24 hr 03/04/25 08:40 03/04/25 08:46 03/04/25 09:30 Temperature 97.2 F L Pulse Rate 72 Pulse Rate [Pulse Oximeter] 73 Respiratory Rate 18 Blood Pressure Blood Pressure [Le ft Arm] Blood Pressure [Ri ght Upper Arm] 144/79 H Pulse Oximetry 95 96 92 Oxygen Delivery Me thod Room Air 03/04/25 09:45 03/04/25 10:00 03/04/25 10:15 Temperature Pulse Rate 72 71 78 Pulse Rate [Pulse Oximeter] Respiratory Rate Blood Pressure Blood Pressure [Le ft Arm] Blood Pressure [Ri ght Upper Arm] Pulse Oximetry 92 94 95 Oxygen Delivery Me thod 03/04/25 10:30 03/04/25 13:08 03/04/25 16:25 Temperature Pulse Rate 78 Pulse Rate [Pulse Oximeter] 72 Respiratory Rate 16 Blood Pressure 108/65 Blood Pressure [Le ft Arm] Blood Pressure [Ri ght Upper Arm] 111/72 Pulse Oximetry 93 92 Oxygen Delivery Me thod Room Air 03/04/25 16:45 Temperature 98 F Pulse Rate Pulse Rate [Pulse Oximeter] 81 Respiratory Rate 16 Blood Pressure Blood Pressure [Le ft Arm] 112/66 Blood Pressure [Ri ght Upper Arm] Pulse Oximetry 93 Oxygen Delivery Me thod Room Air Hospitalist - H&P: Result Imaging CT scan - head: Radiologist's impression: INDICATION: Fall. COMPARISON: None. TECHNIQUE: CT of the head without contrast. FINDINGS: Brain, ventricles, and extra-axial spaces: No acute intracranial hemorrhage. Pope-white differentiation is grossly preserved. Moderate hypoattenuating changes in the white matter which are nonspecific, but commonly attributable to chronic microangiopathic change. Mild parenchymal volume loss with commensurate size of the ventricles and sulci. There are intracranial vascular calcifications. Bones: No acute osseous findings. Visualized paranasal sinuses are clear. Visualized mastoid air cells are clear. Additional findings: Status post bilateral lens replacement. Multifocal mild skin thickening at the left periorbital region and left anterolateral scalp. Rightward deviation of the nasal septum. IMPRESSION: 1. No acute intracranial hemorrhage. 2. Moderate hypoattenuating changes in the white matter which are nonspecific, but commonly attributable to chronic microangiopathic change. 3. Multifocal nonspecific mild skin thickening at the left periorbital region and left anterolateral scalp. Correlate with direct observation on physical exam. CT C-spine: Radiologist's impression: INDICATION: Fall COMPARISON: None. TECHNIQUE: CT of the cervical spine without contrast. FINDINGS: There is diffuse osseous demineralization. Alignment: Slight levocurvature of the cervical spine. Vertebra: No evident acute displaced fracture or traumatic malalignment. Cervical vertebral body height is grossly preserved. There is a prominent partially calcified pannus associated with the craniocervical junction. There are multilevel degenerative changes characterized by disc height loss, osteophytosis, facet hypertrophy, and end plate degenerative irregularity. No high-grade osseous spinal canal stenosis. There is multilevel osseous neural foraminal narrowing such as moderate to severe narrowing at the left C3-4. Paraspinal muscles: Unremarkable noncontrast CT appearance. Additional findings: There are vascular calcifications. There is biapical nodular pleural-parenchymal scarring. IMPRESSION: 1. No evident acute displaced fracture. 2. Moderate to severe degenerative change of the cervical spine. Left elbow x-ray: Radiologist's impression: INDICATION: Posttraumatic pain. COMPARISON: None available. TECHNIQUE: Three views of the left elbow. FINDINGS: Mineralization: Normal. Alignment: Normal. Bones and Joints: No fracture is identified. Soft Tissues: No joint effusion. No significant periarticular soft tissue swelling is appreciated on this radiographic study. Correlate with clinical exam findings. IMPRESSION: No acute traumatic injury is identified.
[2025-03-04] MEDS: ROSUVASTATIN CALCIUM 10 MG TABLET PO (21:46)
[2025-03-04] MEDS: SENNOSIDES/DOCUSATE TABLET 1 TAB PO (21:47)
[2025-03-04] MEDS: METOPROLOL TARTRATE 25 MG TABLET PO (21:48)
[2025-03-04] MEDS: APIXABAN 5 MG TABLET 2.5 MG PO (21:48)
[2025-03-04] MEDS: MEMANTINE HCL 10 MG TABLET PO (21:48)
[2025-03-04] MEDS: MONTELUKAST 10 MG TABLET PO (21:48)
[2025-03-04] MEDS: SODIUM CHLORIDE 0.9 % (FLUSH) 10 ML SYRINGE 5 ML IVF (21:51)
[2025-03-04] MEDS: MOMETASONE FORMOTEROL IH (21:52)
[2025-03-04] MEDS: ENOXAPARIN 30 MG/0.3ML INJ SUBCUT (21:52)
[2025-03-05] VITALS (7 sets, daily range): BP systolic 107–143; BP diastolic 60–70; PULSE 62–82; RESP 17–18; TEMP 36.4–36.9; O2SAT 90–92; BMI 15.3
[2025-03-05] MEDS: MELATONIN 3 MG TABLET PO (00:26)
[2025-03-05] MEDS: ACETAMINOPHEN 500 MG TABLET 1000 MG PO ×2 (00:27→08:29)
[2025-03-05] MEDS: LEVOTHYROXINE 75 MCG TABLET PO (06:37)
[2025-03-05] MEDS: OMEPRAZOLE 20 MG CAPSULE DR PO (06:37)
--- NOTE | 2025-03-05 07:50 | PC.NURSE ---
Shift note ([id number]): Patient pleasant and alert. Pivot transferred to commode with walker, gait belt and assist of two. Was weaker and c/o of discomfort with transfers at beginning of shift. Given PRN Oxycodone and PRN Tylenol for pelvic pain rated 2-8/10.. In middle of night patient tolerated transfers well with no complaints of discomfort. Pt put requested to use the bathroom several times during night. She had no output x1, dribbled x1 and all other voids were 50mL each. She was bladder scanned once during night. Post void residual was 85mL at that time. She had no complaints of urinary discomfort. ?
[2025-03-05] MEDS: CELECOXIB 100 MG CAPSULE PO (08:28)
[2025-03-05] MEDS: LORATADINE 10 MG TABLET PO (08:29)
[2025-03-05] MEDS: MEMANTINE HCL 10 MG TABLET PO ×2 (08:29→20:10)
[2025-03-05] MEDS: MOMETASONE FORMOTEROL IH ×2 (08:29→20:10)
[2025-03-05] MEDS: SENNOSIDES/DOCUSATE TABLET 1 TAB PO ×2 (08:30→20:12)
[2025-03-05] MEDS: APIXABAN 5 MG TABLET 2.5 MG PO ×2 (08:30→20:11)
[2025-03-05] MEDS: METOPROLOL TARTRATE 25 MG TABLET PO ×2 (08:30→20:12)
[2025-03-05] MEDS: SODIUM CHLORIDE 0.9 % (FLUSH) 10 ML SYRINGE 5 ML IVF ×2 (08:30→20:18)
[2025-03-05] MEDS: PREGABALIN 75 MG CAPSULE PO (09:05)
[2025-03-05] MEDS: ACETAMINOPHEN 325 MG TABLET 650 MG PO ×3 (12:28→20:09)
[2025-03-05] MEDS: FERROUS SULFATE 325 MG TABLET PO (12:28)
--- NOTE | 2025-03-05 15:57 | P.IMPN_ITS ---
Assessment and Plan Assessment and plan (1) Closed pelvic fracture: Problem comment: Plan conservative management with pain control and therapy. -03/05/2025: For improved pain management will add one-month course of intranasal calcitonin Status: Acute (2) Osteoporosis: Problem comment: Fragility fracture involving her pelvis with history of rib fractures from coughing and vertebral compression fractures. Has been on risedronate, vitamin- D and calcium for a decade. - 03/05/2025: Will initiate one-month course of intranasal calcitonin Status: Acute (3) Dementia: Problem comment: Namenda - 03/05/2025: Patient is pleasant. Does rely on family to help remember and make decisions. Status: Acute (4) Discharge planning issues: Problem comment: Planning to return to [place] but difficulty with pain and immobility due to fracture. - 03/05/2025: Physical therapy and occupational therapy assessments as well as nursing staff assessment indicate at the moment that it would be premature for the patient to make any long distance travel. I have indicated to the patient and family that the patient would benefit from transitional care services until such time as it is deemed that it is safe for her to travel. Discussed patient moving in with family or family moving in with patient or transitional care services at a care home facility. Patient, , and family are discussing this in conjunction with our vp digital marketing social media and crm staff to try to make a decision about a safe discharge disposition plan. Status: Acute (5) Chronic anticoagulation: Problem comment: Monitor for excessive bleeding from pelvic fracture Status: Acute (6) Cachexia: Problem comment: - 03/05/2025: BMI 15.4 kilograms/meter squared. Monitor and consider nutritional supplementation. Status: Acute Subjective Date Seen: 03/05/25 Interval history: Admission history of present illness: ?84 year old female with history of valvular heart disease, atrial fibrillation, dementia, osteoporosis presents to the emergency department with left groin pain after a fall. Patient is visiting [place] with her . They are staying with friends. She got up this morning to go to the bathroom and fell. There was no loss of consciousness. She did not hit her head. She denies any other injury other than her left groin/hip pain. ?In the emergency department she was found to have a acute nondisplaced fracture of the left pubic ramus and medial inferior ischial pubic ring. She was unable to ambulate in the emergency department and has been admitted for management of pain and disposition planning. She lives with her in [facility]. They were planning on returning home to [place] today. They spend luz at a cabin on [address]. She reports she has otherwise been feeling well. She denies any fever, cold, cough, chest pain, dyspnea, abdominal pain, vomiting. She does have tendency towards constipation. No urinary problems.? 03/05/2025: Hospital day 2. Pain management is improved. Tolerating slightly increased exertional efforts. Still requiring assist of 1 for transfers and standby assist for ambulation. Utilizing pediatric walker successfully. Denies other discomforts save pain and pelvis on affected left side with weight-bearing and sometimes with movement. Exam Narrative: Exam Narrative: Examine her in her hospital room. When she is sitting she appears comfortable. I observe her struggling to transfer due to pain with assist of 1 and able to ambulate with walker and standby assist. Lungs clear to auscultation. Heart tones with regular rhythm. Abdomen benign. Very thin. Appears cachectic. BMI is 15.4 kilograms/meter squared. Const: Vital Signs, click to edit/add: Vital Signs - 24 hr 03/04/25 16:25 03/04/25 16:45 03/04/25 19:26 Temperature 98 F 98.6 F Pulse Rate [Pulse Oximeter] 72 81 93 Respiratory Rate 16 16 17 Blood Pressure [Le ft Arm] 112/66 132/67 Blood Pressure [Ri ght Arm] Blood Pressure [Ri ght Upper Arm] 111/72 Pulse Oximetry 92 93 92 Oxygen Delivery Me thod Room Air Room Air Room Air 03/04/25 22:11 03/05/25 02:24 03/05/25 07:00 Temperature 98.2 F 98.5 F Pulse Rate [Pulse Oximeter] 92 80 82 Respiratory Rate 17 17 18 Blood Pressure [Le ft Arm] Blood Pressure [Ri ght Arm] 153/73 H 107/66 Blood Pressure [Ri ght Upper Arm] Pulse Oximetry 95 92 Oxygen Delivery Me thod Room Air Room Air 03/05/25 08:05 03/05/25 12:30 Temperature 98.1 F 97.5 F L Pulse Rate [Pulse Oximeter] 82 62 Respiratory Rate 18 18 Blood Pressure [Le ft Arm] Blood Pressure [Ri ght Arm] 119/69 113/68 Blood Pressure [Ri ght Upper Arm] Pulse Oximetry 90 92 Oxygen Delivery Me thod Room Air Room Air
--- NOTE | 2025-03-05 16:11 | PC.SOCIAL ---
Discharge planning: ammonia refrigeration worker met with pt and her family multiple times throughout the day today. Pt has been in observation status during this hospital stay. Pt's family agreed for this worker to check on availability with several respite care facitlies in and around [place] for placement for the pt since family is not able to take her home and care for her. Pt actually lives in [place] and has been in [place] visiting. Pt was staying with her at a friend's house in [place] for a visit when she fell out of bed and broke her pelvis. Pt and her do have a son that live in the [facility], who has been at the hospital, but is not willing to take the pt home and care for her. Pt and 's niece, who is a retired ED physician, will be flying in from [place] this Saturday and has agreed to stay with the pt and her and take care of the pt 07/01. The pt's niece will also drive the pt and her back to [place] when the pt is ready which they are hoping will be as early as next week, until they can start driving the niece, pt and her will stay in a local hotel room. ammonia refrigeration worker did contact Lala at [facility] to ask about openings in their Enhanced Assisted Living. [facility] does not have openings until Saturday and could not assess the pt today due to staffing shortages. ammonia refrigeration worker contacted [facility] in [place] who offer respite care stays and they are not willing to take a patient for only a few days; they stated it would need to be a minimum of 14 days and the family does not need to stay in [place] that long. ammonia refrigeration worker also reached out to [facility] in [place] to ask about respite care openings and they do not have any available until later next week or possibly the following week. Pt will remain in the hospital again tonight. Social work to follow-up as needed.
--- NOTE | 2025-03-05 18:30 | PC.NURSE ---
End of shift: Patient pleasant and cooperative, pleasantly confused. VSS, afebrile. Patient reports minimal pain in her pelvis this shift, managed with PRN medication, see MAR. Tolerating regular diet. 1A w/ walker and gait belt to BR. ?
[2025-03-05] MEDS: ROSUVASTATIN CALCIUM 10 MG TABLET PO (20:09)
[2025-03-05] MEDS: MONTELUKAST 10 MG TABLET PO (20:09)
[2025-03-05] MEDS: ENOXAPARIN 30 MG/0.3ML INJ SUBCUT (20:13)
[2025-03-05] MEDS: CALCITONIN SALMON NASAL SPRAY 200 UNIT 1 SPRAY NOSTRIL-B (20:17)
[2025-03-06] VITALS (8 sets, daily range): BP systolic 109–139; BP diastolic 61–94; PULSE 70–83; RESP 16–18; TEMP 36.3–37.1; O2SAT 90–96
[2025-03-06 06:09] LABS: Hematocrit* 33.9 % (33.0-51.0); Hemoglobin* 10.8 gm/dL (12.0-16.0); Immature Granulocytes Abs Auto 0.10 K/uL (0.00-0.30); Immature Granulocytes Pct Auto 1.2 %; Mean Corpuscular HGB Conc 32 gm/dL (32-36); Mean Corpuscular Hemoglobin 29 pg (26-34); Mean Corpuscular Volume 92 fL (80-100); RDW Coefficient of Variation % 13.7 % (11.5-15.5); Red Blood Count* 3.69 m/uL (4.00-5.20); White Blood Count* 8.61 K/uL (4.50-11.00)
--- NOTE | 2025-03-06 06:14 | PC.NURSE ---
Alert and oriented with forgetfulness. IV discontinued, with tip intact. VSS. Reported 5 out of 10 pain, managed with scheduled tylenol and PRN Oxycodone. Pt slept for 8hrs and is 1 assist with walker.
[2025-03-06 06:30] LABS: Lymphocytes Absolute Auto 0.80 K/uL (0.90-2.90); Slide Review Reflex No
[2025-03-06 06:31] LABS: Chloride* 102 mmol/L (96-114)
[2025-03-06 06:32] LABS: Potassium* 3.9 mmol/L (3.6-5.1); Sodium* 133 mmol/L (135-149)
[2025-03-06 06:34] LABS: Blood Urea Nitrogen* 13 mg/dL (7-30); Creatinine* 0.6 mg/dL (0.5-1.5); Est. Creatinine Clearance* 26.84; Estimated Glomerular Filt Rate 88 ml/min
[2025-03-06 06:35] LABS: Anion Gap 3 mEq/L (7-15); Calcium* 8.4 mg/dL (8.4-10.6); Carbon Dioxide* 28 mmol/L (20-32); Glucose* 95 mg/dL (60-115)
[2025-03-06] MEDS: OMEPRAZOLE 20 MG CAPSULE DR PO (06:42)
[2025-03-06] MEDS: LEVOTHYROXINE 75 MCG TABLET PO (06:42)
[2025-03-06] MEDS: LORATADINE 10 MG TABLET PO (09:31)
[2025-03-06] MEDS: ACETAMINOPHEN 325 MG TABLET 650 MG PO ×4 (09:31→20:24)
[2025-03-06] MEDS: METOPROLOL TARTRATE 25 MG TABLET PO ×2 (09:32→20:25)
[2025-03-06] MEDS: MEMANTINE HCL 10 MG TABLET PO ×2 (09:32→20:24)
[2025-03-06] MEDS: PREGABALIN 75 MG CAPSULE PO (10:01)
[2025-03-06] MEDS: APIXABAN 5 MG TABLET 2.5 MG PO ×2 (10:01→20:25)
[2025-03-06] MEDS: CELECOXIB 100 MG CAPSULE PO (10:02)
[2025-03-06] MEDS: MOMETASONE FORMOTEROL IH ×2 (10:02→20:29)
[2025-03-06] MEDS: SENNOSIDES/DOCUSATE TABLET 1 TAB PO ×2 (10:03→20:25)
[2025-03-06] MEDS: FERROUS SULFATE 325 MG TABLET PO (11:32)
--- NOTE | 2025-03-06 15:58 | P.IMPN_ITS ---
Assessment and Plan Assessment and plan (1) Closed pelvic fracture: Problem comment: Plan conservative management with pain control and therapy. -03/05/2025: For improved pain management will add one-month course of intranasal calcitonin -03/06/2025: Continue with efforts to establish a safe discharge disposition plan, see below Status: Acute (2) Osteoporosis: Problem comment: Fragility fracture involving her pelvis with history of rib fractures from coughing and vertebral compression fractures. Has been on risedronate, vitamin- D and calcium for a decade. - 03/05/2025: Will initiate one-month course of intranasal calcitonin Status: Acute (3) Dementia: Problem comment: Namenda - 03/05/2025: Patient is pleasant. Does rely on family to help remember and make decisions. Status: Acute (4) Discharge planning issues: Problem comment: Planning to return to [place] but difficulty with pain and immobility due to fracture. - 03/05/2025: Physical therapy and occupational therapy assessments as well as nursing staff assessment indicate at the moment that it would be premature for the patient to make any long distance travel. I have indicated to the patient and family that the patient would benefit from transitional care services until such time as it is deemed that it is safe for her to travel. Discussed patient moving in with family or family moving in with patient or transitional care se rvices at a correction facility. Patient, , and family are discussing this in conjunction with our social work professor staff to try to make a decision about a safe discharge disposition plan. - 03/06/2025: Patient , son indicate they will be ready for receiving the patient safely tomorrow. They are still arranging to obtain all the equipment needed. They have arranged for the nearby hotel with accommodations for her physical needs. They indicate that there leonidas, retired emergency department physician, will be here to help tomorrow afternoon. Status: Acute (5) Chronic anticoagulation: Problem comment: Monitor for excessive bleeding from pelvic fracture Status: Acute (6) Cachexia: Problem comment: - 03/05/2025: BMI 15.4 kilograms/meter squared. Monitor and consider nutritiona l supplementation. Status: Acute Plan 1. Reviewed impression with patient, , son, [id number] 2. Reviewed plans and recommendations 3. Answered their questions 4. They are agreeable with above stated plans and recommendations including discharge tomorrow when their safety plan is in place Total Time Spent Total Time Spent: 30 minutes Subjective Date Seen: 03/06/25 Interval history: Admission history of present illness: ?84 year old female with history of valvular heart disease, atrial fibrillation, dementia, osteoporosis presents to the emergency department with left groin pain after a fall. Patient is visiting [place] with her . They are staying with friends. She got up this morning to go to the bathroom and fell. There was no loss of consciousness. She did not hit her head. She denies any other injury other than her left groin/hip pain. ?In the emergency department she was found to have a acute nondisplaced fracture of the left pubic ramus and medial inferior ischial pubic ring. She was unable to ambulate in the emergency department and has been admitted for management of pain and disposition planning. She lives with her in [facility]. They were planning on returning home to [place] today. They spend luz at a cabin on [facility]. She reports she has otherwise been feeling well. She denies any fever, cold, cough, chest pain, dyspnea, abdominal pain, vomiting. She does have tendency towards constipation. No urinary problems.? 03/05/2025: Hospital day 2. Pain management is improved. Tolerating slightly increased exertional efforts. Still requiring assist of 1 for transfers and standby assist for ambulation. Utilizing pediatric walker successfully. Denies other discomforts save pain and pelvis on affected left side with weight-bearing and sometimes with movement. 03/06/2025: Hospital day 3. Pain is better managed. With assist of 1 is able to transfer and ambulate. Does not really remember details of planning for her to leave the hospital and relies on her and son and family to help answer questions about their plans for discharge. Exam Narrative: Exam Narrative: Examine her in her hospital room. Appears comfortable no acute distress. Sitting at bedside recliner chair. Independent with eating after meal prep and setup. Needs assist with transfers and ambulation. Lungs are clear to auscultation. Heart tones with regular rhythm. Abdomen is thin with active bowel sounds, soft, nontender. Const: Vital Signs, click to edit/add: Vital Signs - 24 hr 03/05/25 19:59 03/05/25 23:00 03/06/25 03:00 Temperature 98.4 F 97.9 F Pulse Rate [Pulse Oximeter] 76 71 74 Respiratory Rate 18 18 17 Blood Pressure [Le ft Arm] Blood Pressure [Ri ght Arm] 112/60 143/70 H 139/74 Pulse Oximetry 92 91 90 Oxygen Delivery Me thod Room Air Room Air Room Air 03/06/25 07:00 03/06/25 07:30 03/06/25 11:30 Temperature 98.8 F 98.4 F Pulse Rate [Pulse Oximeter] 83 83 72 Respiratory Rate 16 16 16 Blood Pressure [Le ft Arm] 109/62 Blood Pressure [Ri ght Arm] 127/94 H Pulse Oximetry 90 93 Oxygen Delivery Me thod Room Air Room Air 03/06/25 15:15 03/06/25 15:16 Temperature 98.0 F Pulse Rate [Pulse Oximeter] 70 70 Respiratory Rate 18 18 Blood Pressure [Le ft Arm] Blood Pressure [Ri ght Arm] 130/61 Pulse Oximetry 96 Oxygen Delivery Me thod Room Air Labs Labs: Laboratory Results - last 24 hr 03/06/25 05:40 WBC 8.61 RBC 3.69 L Hgb 10.8 L Hct 33.9 MCV 92 MCH 29 MCHC 32 RDW Coeff of Tabitha 13.7 Plt Count 151 Neut % (Auto) 78.5 H Lymph % (Auto) 9.8 L Posey % (Auto) 6.6 Eos % (Auto) 3.7 Baso % (Auto) 0.2 Neut # (Auto) 6.80 Lymph # (Auto) 0.80 L Posey # (Auto) 0.60 Eos # (Auto) 0.32 Baso # (Auto) 0.02 Abs Immat Gran (auto) 0.10 Imm/Tot Granulo (auto) 1.2 Sodium 133 L Potassium 3.9 Chloride 102 Carbon Dioxide 28 Anion Gap 3 L BUN 13 Creatinine 0.6 Estimated Creat Clear 26.84 Estimated GFR 88 Glucose 95 Calcium 8.4 Phosphorus 3.0 Magnesium 2.2 C-Reactive Protein 4.0 H TSH 2.170
--- NOTE | 2025-03-06 18:26 | PC.NURSE ---
End of Shift ([id number]): Patient pleasant and cooperative, only oriented to self and place this shift. VSS, afebrile. Patient reports pain in her pelvis with activity this shift, managed with scheduled medication, declined PRN medication. 1A with walker and gait belt to BR this shift. ?
[2025-03-06] MEDS: ROSUVASTATIN CALCIUM 10 MG TABLET PO (20:24)
[2025-03-06] MEDS: MONTELUKAST 10 MG TABLET PO (20:25)
[2025-03-06] MEDS: ENOXAPARIN 30 MG/0.3ML INJ SUBCUT (20:27)
[2025-03-06] MEDS: CALCITONIN SALMON NASAL SPRAY 200 UNIT 1 SPRAY NOSTRIL-B (20:27)
[2025-03-07 04:42] VITALS: BP 138/81; PULSE 78; RESP 17; TEMP 36.8; O2SAT 90
[2025-03-07] MEDS: LEVOTHYROXINE 75 MCG TABLET PO (06:09)
[2025-03-07] MEDS: OMEPRAZOLE 20 MG CAPSULE DR PO (06:09)
--- NOTE | 2025-03-07 07:05 | PC.NURSE ---
pt is alert and oriented to x2. VSS. Reported pain, managed with oxycodone. assist of 1 with walker.
[2025-03-07 08:30] VITALS: BP 145/79; PULSE 80; RESP 14; TEMP 36.7; O2SAT 90
[2025-03-07] MEDS: ACETAMINOPHEN 325 MG TABLET 650 MG PO ×2 (09:30→13:43)
[2025-03-07] MEDS: LORATADINE 10 MG TABLET PO (09:30)
[2025-03-07] MEDS: CELECOXIB 100 MG CAPSULE PO (09:31)
[2025-03-07] MEDS: METOPROLOL TARTRATE 25 MG TABLET PO (09:31)
[2025-03-07] MEDS: APIXABAN 5 MG TABLET 2.5 MG PO (09:31)
[2025-03-07] MEDS: MOMETASONE FORMOTEROL IH (09:31)
[2025-03-07] MEDS: MEMANTINE HCL 10 MG TABLET PO (09:31)
[2025-03-07] MEDS: SENNOSIDES/DOCUSATE TABLET 1 TAB PO (09:31)
[2025-03-07] MEDS: PREGABALIN 75 MG CAPSULE PO (09:31)
[2025-03-07] MEDS: FERROUS SULFATE 325 MG TABLET PO (11:55)
[2025-03-07 12:00] VITALS: BP 99/58; PULSE 82; RESP 18; TEMP 36.8; O2SAT 96
--- NOTE | 2025-03-07 16:52 | PC.NURSE ---
Discharge: Patient plesant and cooperative. VSS, afebrile. Discharge instructions provided, all questions answered.
--- NOTE | 2025-03-07 16:59 | P.DS_ITS ---
DS: Providers Provider Date Seen: 03/07/25 Date of admission: 03/04/25 16:13 Primary care physician: Not a Local Provider Admitting Clinician: Km Perez MD Consults: 03/04/25 11:25 Consult to Physical Therapy [CONS] Urgent Comment: Reason(s) for PT Consult:: Evaluate Ambulation Any Restrictions?:: Wt Bearing as Tolerated 03/04/25 17:23 Consult to Occupational Therapy [CONS] Routine Comment: Reason(s) for OT Consult:: Evaluate and Treat Any Restrictions?:: No Restrictions Consult to Physical Therapy [CONS] Routine Comment: Reason(s) for PT Consult:: Evaluate and Treat Any Restrictions?:: No Restrictions Consult to [facility] [CONS] Routine Comment: Reason for Consult:: Discharge Planning Needs Attending Physician on discharge: Km Perez MD Date of Discharge: 03/07/25 DS: Diagnosis Discharge Diagnosis (1) Closed pelvic fracture: Status: Acute Problem details: Plan conservative management with pain control and therapy. -03/05/2025: For improved pain management will add one-month course of intranasal calcitonin -03/06/2025: Continue with efforts to establish a safe discharge disposition plan, see below (2) Unsteady gait: Status: Acute (3) Sarcopenia: Status: Acute (4) Osteoporosis: Status: Acute Problem details: Fragility fracture involving her pelvis with history of rib fractures from coughing and vertebral compression fractures. Has been on risedronate, vitamin- D and calcium for a decade. - 03/05/2025: Will initiate one-month course of intranasal calcitonin (5) Cachexia: Status: Acute Problem details: - 03/05/2025: BMI 15.4 kilograms/meter squared. Monitor and consider nutritional supplementation. (6) Dementia: Status: Acute Problem details: Namenda - 03/05/2025: Patient is pleasant. Does rely on family to help remember and make decisions. (7) Chronic anticoagulation: Status: Acute Problem details: Monitor for excessive bleeding from pelvic fracture (8) Discharge planning issues: Status: Acute Problem details: Planning to return to [place] but difficulty with pain and immobility due to fracture. - 03/05/2025: Physical therapy and occupational therapy assessments as well as nursing staff assessment indicate at the moment that it would be premature for the patient to make any long distance travel. I have indicated to the patient and family that the patient would benefit from transitional care services until such time as it is deemed that it is safe for her to travel. Discussed patient moving in with family or family moving in with patient or transitional care services at a penitentiary facility. Patient, , and family are discussing this in conjunction with our clinical social work therapist staff to try to make a decision about a safe discharge disposition plan. - 03/06/2025: Patient , son indicate they will be ready for receiving the patient safely tomorrow. They are still arranging to obtain all the equipment needed. They have arranged for the nearby hotel with accommodations for her physical needs. They indicate that there niece, retired emergency department physician, will be here to help tomorrow afternoon. DS: Summary Hospital Course Hospital Course: Admission history of present illness: ?84 year old female with history of valvular heart disease, atrial fibrillation, dementia, osteoporosis presents to the emergency department with left groin pain after a fall. Patient is visiting [place] with her . They are staying with friends. She got up this morning to go to the bathroom and fell. There was no loss of consciousness. She did not hit her head. She denies any other injury other than her left groin/hip pain. ?In the emergency department she was found to have a acute nondisplaced fracture of the left pubic ramus and medial inferior ischial pubic ring. She was unable to ambulate in the emergency department and has been admitted for management of pain and disposition planning. She lives with her in [facility]. They were planning on returning home to [place] today. They spend luz at a cabin on [facility]. She reports she has otherwise been feeling well. She denies any fever, cold, cough, chest pain, dyspnea, abdominal pain, vomiting. She does have tendency towards constipation. No urinary problems.? 03/05/2025: Hospital day 2. Pain management is improved. Tolerating slightly increased exertional efforts. Still requiring assist of 1 for transfers and standby assist for ambulation. Utilizing pediatric walker successfully. Denies other discomforts save pain and pelvis on affected left side with weight-bearing and sometimes with movement. 03/06/2025: Hospital day 3. Pain is better managed. With assist of 1 is able to transfer and ambulate. Does not really remember details of planning for her to leave the hospital and relies on her and son and family to help answer questions about their plans for discharge. 03/07/2025: Hospital day 4. Family plan for caring for patient finally in place and patient is discharged today under family support. Status at Discharge Functional status at discharge: uses cane/walker Overall status at discharge: patient is progressing back to baseline Time Spent with Patient Time attestation: Total time spent providing and/or coordinating discharge services: Time spent: Less than 30 minutes Exam Narrative: Exam Narrative: Examine her in her hospital room. Appears comfortable no acute distress. Sitting at bedside recliner chair. Independent with eating after meal prep and setup. Needs assist with transfers and ambulation. Lungs are clear to auscultation. Heart tones with regular rhythm. Abdomen is thin with active bowel sounds, soft, nontender. Continues to need assist of 1 or standby assist with transfers and ambulation, in addition to her walker Const: Vital Signs, click to edit/add: Vital Signs - 24 hr 03/06/25 20:37 03/06/25 22:26 03/07/25 04:42 Temperature 97.3 F L 98.3 F Pulse Rate [Pulse Oximeter] 76 74 78 Respiratory Rate 18 16 17 Blood Pressure [Le ft Arm] Blood Pressure [Ri ght Arm] 120/67 131/87 138/81 Pulse Oximetry 91 90 90 Oxygen Delivery Me thod Room Air Room Air Room Air 03/07/25 08:30 03/07/25 08:30 03/07/25 12:00 Temperature 98.0 F 98.2 F Pulse Rate [Pulse Oximeter] 80 80 82 Respiratory Rate 14 14 18 Blood Pressure [Le ft Arm] 99/58 L Blood Pressure [Ri ght Arm] 145/79 H Pulse Oximetry 90 96 Oxygen Delivery Me thod Room Air Room Air DS: Data Imaging CT scan of head and cervical spine: Radiologist's impression: No acute abnormalities including no fractures X-ray of elbow: Radiologist's impression: No acute fractures X-ray of pelvis: Radiologist's impression: IMPRESSION: Acute nondisplaced fractures of left pubic ramus and medial inferior ischiopubic ring Discharge Plan Discharge Disposition: Home w/ Parent or Adult Date of Admission: 03/04/25 16:13 Attending Provider on Discharge: Km Perez Primary Care Provider: Provider,Not a Local Condition: Improved Anticipated Discharge Date/Time: 03/06/25 16:00 Discharge Medications: New acetaminophen 325 mg Tablet 650 mg PO QID 30 Days Qty: 240 0RF calcitonin (salmon) 200 unit/actuation [place],Non-Aerosol 1 spray intranasal HS 30 Days Qty: 3.7 0RF oxycodone 5 mg Tablet 2.5 mg PO Q4H PRN7 Days Qty: 7 0RF Continued Eliquis 2.5 mg tablet 2.5 mg PO BID risedronate 150 mg tablet 150 mg PO Q30D Rx Instructions: MONTHLY metoprolol tartrate 25 mg tablet 25 mg PO BID mirabegron 25 mg tablet extended release 24 hr 25 mg PO HS pregabalin 75 mg capsule 75 mg PO DAILY levothyroxine [Synthroid] 75 mcg tablet 75 mcg PO DAILY rosuvastatin 10 mg tablet 10 mg PO HS montelukast 10 mg tablet 10 mg PO HS memantine 10 mg tablet 10 mg PO BID azelastine-fluticasone 137-50 mcg/spray spray,non-aerosol 2 spray intranasal BID Rx Instructions: administer into each nostril Dulera 200-5 mcg/actuation HFA aerosol inhaler 2 inh inhalation BID albuterol sulfate [Ventolin HFA] 90 mcg/actuation HFA aerosol inhaler 2 inh inhalation Q4H PRN omeprazole 20 mg capsule,delayed release(DR/EC) 20 mg PO DAILY cholecalciferol (vitamin D3) 125 mcg (5,000 unit) capsule 5,000 unit PO MOWEFR PREVAGEN 20 mg 1 cap PO HS ferrous sulfate [Iron (ferrous sulfate)] 325 mg (65 mg iron) tablet 325 mg PO DAILY@12 cyanocobalamin (vitamin B-12) 1,000 mcg tablet 1,000 mcg PO DAILY@12 PreserVision AREDS-2 250-90-40-1 mg capsule 1 tab PO BID@ loratadine [Claritin] 10 mg tablet 10 mg PO DAILY Metamucil 3.4 gram/5.4 gram powder 1 tsp PO QPM Rx Instructions: mix into at least 8 oz of water or juice before administering polyethylene glycol 3350 [ClearLax] 17 gram/dose powder 17 g PO DAILY PRN celecoxib 100 mg capsule 100 mg PO DAILY PRN Discontinued acetaminophen 500 mg tablet 500 - 1,000 mg PO Q6H PRN Discharge Orders: Discharge Order (Routine); Ordered 03/07/25 Ordered By: Km Perez Patient Education: Acetaminophen (By mouth), Oxycodone, Rapid Release (By mouth), Calcitonin (Into the nose), Pelvic Fracture (DC) Additional Instructions: 1. Follow-up with primary manager long term care in 5-10 days 2. Complete 1 month course of nasal calcitonin 3. You will need supportive assistance for a minimum 1 week, and may need support for an additional period of time 4. Use walker for all ambulation Activity Level: Activity as Tolerated and Use Walker Discharge Diet: Regular and Other Diet Detail: Consume 1 nutritional supplement can/bottle daily Follow Up Appointments: Provider,Not a Local [Primary Care Provider, Family Practice] Forms: Patient Belongings, MyHealth Info Instructions
== END 2025-03-07 15:00 | disposition home or self-care (01) ==
LOC: ED 15:15 → MEDSURG 16:13
PROVIDERS: Admitting Provider Internal Medicine; Emergency Provider Student in an Organized Health Care Education/Training Program; Visit Provider Internal Medicine
DX: S32.502A Unspecified fracture of left pubis, initial encounter for closed fracture (principal); M81.0 Age-related osteoporosis without current pathological fracture; F03.90 Unspecified dementia, unspecified severity, without behavioral disturbance, psychotic disturbance, mood disturbance, and anxiety; M62.84 Sarcopenia; R26.9 Unspecified abnormalities of gait and mobility; R64 Cachexia; Z79.01 Long term (current) use of anticoagulants
CPT/HCPCS: 36415; 70450; 72125; 73080; 73502; 80048; 83735; 84100; 84443; 85025; 86140; 94761; 97110; 97116; 97161; 97165; 97530; 97535; 99284; 99285; A9270; G0378; J1650